=== PATIENT | female | born 1960 | race Caucasian/White ===

== ENCOUNTER 2017-09-08 11:19 | Outpatient (CLI) | payer OTHER | END 2017-09-08 11:20 | LOC: LABRHC 11:19 | PROVIDERS: ATTEND Family Medicine | DX: Z12.4 Encounter for screening for malignant neoplasm of cervix (principal) | CPT/HCPCS: 88148; G0143 ==

== ENCOUNTER 2019-10-10 08:56 | Outpatient (CLI) | payer OTHER ==
[2019-10-10 13:36] LABS: eGFR (Non-African) > 60
[2019-10-10 13:37] LABS: HDL 64 mg/dL (>40)
--- NOTE | 2019-10-11 14:53 | Diagnostic Imaging Report ---
[facility] [address] [facility] [id number] PATIENT NAME: JUNIOR TORRES ACCESSION #: : [id number] DOS: 10/10/2019 REFERRING PHYSICIAN: DR SOCRATES HI EXAMINATION: DEXA DUAL ENERGY X-RAY ABSORPTIOMETRY (DXA) A DXA scan was performed on October 10, 2019 using a [employer] densitometer. IMPRESSION: Based on BMD diagnosis is consistent with osteopenia (based on WHO criteria). Fracture risk is moderate. Treatment is advised. Follow-up exam recommended September 2021. INDICATION: AGE RELATED OSTEOPOROSIS Technical Quality: Diagnostic RESULTS: Lumbar Spine The BMD measured in the L2-L4 region is 0.964 g/cm2 T-score -2.0 Total Hip The BMD measured at the total proximal femurs is 0.824 g/cm2 T-score -1.5 Dr. Lew Conteh Electronically signed on: 10/11/2019 6:00:12 AM MONICA
== END 2019-10-10 09:06 ==
LOC: RAD 08:56
PROVIDERS: ATTEND Family Medicine
DX: Z00.00 Encounter for general adult medical examination without abnormal findings (principal); M81.0 Age-related osteoporosis without current pathological fracture
CPT/HCPCS: 36415; 77080; 80053; 80061